=== PATIENT | male | born 1985 | race Caucasian/White ===

== ENCOUNTER 2018-08-23 15:46 | Emergency (ER) | payer BC ==
[~2018-08-23] VITALS: Ht 182.9 cm; Wt 86.4 kg
[2018-08-23 16:15] VITALS: TEMP 97.7
[2018-08-23 17:02] LABS: BASO % 0.7 % (0.0-2.0); EOS # 0.2 (0.0-0.7); EOS % 3.5 % (0-4.0); GRAN # 3.4 (1.4-6.5); GRAN % 55.6 % (42.2-75.2); HEMATOCRIT 46.3 % (42.0-52.0); HEMOGLOBIN 16.2 g/dl (13.5-18.0); LYMPH # 1.7 (1.2-3.4); LYMPH % 28.1 % (20.0-51.0); MEAN CELL VOLUME 90 fl (80.0-100.0); MEAN CORPUSCULAR HEMOGLOBIN 32 pg (27.0-31.0); MEAN CORPUSCULAR HGB CONC 35 g/dl (33.0-37.0); MEAN PLATELET VOLUME 9.7 fl (7.4-10.4); MONO # 0.7 (0.1-0.6); MONO % 11.8 % (1.7-9.3); PLATELET COUNT 284 K/mm3 (130-400); RED BLOOD COUNT 5.13 M/mm3 (4.20-5.60); REDCELL DISTRIBUTION WIDTH-CV 12.8 % (11.5-14.5)
[2018-08-23 17:18] LABS: ALANINE AMINOTRANSFERASE 15 U/L (21-72); ALBUMIN 4.7 gm/dL (3.5-5.0); ALCOHOL(ethanol),MEDICAL 91 mg/dL; ALKALINE PHOSPHATASE 67 U/L (50-136); ANION GAP 15 mmol/L (7-16); AST,SGOT 29 U/L (15-37); BILIRUBIN,TOTAL 0.5 mg/dL (0.0-1.0); BLOOD UREA NITROGEN 9 mg/dL (9-20); CALCIUM 9.3 mg/dL (8.4-10.2); CARBON DIOXIDE 23 mmol/L (22-30); CHLORIDE 106 mmol/L (98-107); CREATININE, serum 0.93 (0.66-1.25); GLUCOSE 102 mg/dL (74-106); POTASSIUM 4.1 mmol/L (3.4-5.0); SODIUM 144 mmol/L (137-145); TOTAL PROTEIN 8.3 gm/dL (6.4-8.2)
[2018-08-23 17:39] LABS: ACETAMINOPHEN < 10 ug/mL (10-30); SALICYLATE < 1.0 mg/dL; TROPONIN-I < 0.012 ng/mL (0.000-0.035)
[2018-08-23 19:05] VITALS: BP 111/82; PULSE 92
== END 2018-08-23 19:00 | disposition home or self-care (01) ==
LOC: COL.ER 15:46
PROVIDERS: Emergency Medicine
DX: R55 Syncope and collapse (principal); R07.89 Other chest pain; F10.10 Alcohol abuse, uncomplicated; F14.90 Cocaine use, unspecified, uncomplicated
CPT/HCPCS: J1885; J7030